=== PATIENT | female | born 1950 ===

== ENCOUNTER 2017-11-18 18:36 | Emergency (ER) | payer MEDICARE ==
[2017-11-18 19:52] VITALS: O2SAT 97
--- NOTE | 2017-11-18 19:55 | C.PDOC ---
History Of Present Illness 67 y/o female presents to the ED complaining of blurry vision, onset earlier today. Patient states symptoms have currently resolved. Also states she has not been taking her prescribed blood pressure medication, and is insisting on taking herbal medication. Otherwise she denies any palpitations, chest pain, SOB , numbness, extremity weakness, or other complaints. Time Seen by Provider: 11/18/17 19:54 Chief Complaint (Nursing): High Blood Pressure History Per: Patient History/Exam Limitations: no limitations Onset/Duration Of Symptoms: Hrs Current Symptoms Are (Timing): Gone Associated Symptoms: Blurred Vision Quality Of Symptoms: Asymptomatic Exacerbating Factor(s): Pos: Recently Missed Doses Of Medication Recent travel outside of the [place]: No Past Medical History Reviewed: Historical Data, Nursing Documentation, Vital Signs Vital Signs: Last Vital Signs Temp 98.1 F 11/18/17 20:34 Pulse 80 11/18/17 21:04 Resp 13 11/18/17 21:04 BP 181/75 H 11/18/17 21:04 Pulse Ox 97 11/18/17 21:17 - Medical History PMH: Diabetes, HTN Other Surgeries: Angioplasty Family History: States: No Known Family Hx - Social History Hx Tobacco Use: No Hx Alcohol Use: No Hx Substance Use: No - Immunization History Hx Tetanus Toxoid Vaccination: No Hx Influenza Vaccination: No Hx Pneumococcal Vaccination: No Review Of Systems Constitutional: Negative for: Fever, Chills Eyes: Positive for: Vision Change (blurred vision) Cardiovascular: Negative for: Chest Pain, Palpitations Respiratory: Negative for: Shortness of Breath Gastrointestinal: Negative for: Nausea, Vomiting Neurological: Negative for: Weakness, Numbness, Incoordination Physical Exam - Physical Exam Appears: Non-toxic, No Acute Distress Skin: Warm, Dry Head: Normacephalic Eye(s): bilateral: Normal Inspection Oral Mucosa: Moist Neck: Trachea Midline, Supple Chest: Symmetrical Cardiovascular: Rhythm Regular Respiratory: No Rales, No Rhonchi, No Wheezing Gastrointestinal/Abdominal: Soft, No Tenderness, No Distention, No Guarding Extremity: Bilateral: Atraumatic, Normal Color And Temperature, Normal ROM Pulses: Left Dorsalis Pedis: Normal, Right Dorsalis Pedis: Normal Neurological/Psych: Oriented x3, Normal Speech, Normal Cranial Nerves (2-12 intact), Normal Motor, Normal Sensation, Other (Non-focal neuro exam; No visual deficits) Gait: Steady ED Course And Treatment - Laboratory Results Result Diagrams: 11/18/17 20:01 11/18/17 20:40 O2 Sat by Pulse Oximetry: 97 (RA) Pulse Ox Interpretation: Normal - CT Scan/US CT Head Other Rad Studies (CT/US): Read By Radiologist CT/US Interpretation: FINDINGS: Brain: Out of proportion for age atrophy with chronic white matter ischemic changes, with no. evidence of an acute intracranial abnormality. There are multiple small hypodensities in the basal. ganglia consistent with remote lacunar infarctions. No hemorrhage. Ventricles: Unremarkable. No ventriculomegaly. Bones/joints: Chronic appearing nasal bone fractures. Soft tissues: Unremarkable. Vasculature: Atherosclerosis of the vertebral arteries and cavernous carotid arteries Probable. redundant loop all of the terminus of the left common carotid or anterior communicating artery artery. but a small aneurysm is not excluded. Sinuses: Unremarkable as visualized. No acute sinusitis. Mastoid air cells: Unremarkable as visualized. No mastoid effusion. IMPRESSION: No hemorrage, mass effect or subacute territorial infarction. CT can miss an acute nonhemorrhagic CVA. Acute strokes may be initially radiologically occult on CT. If the patient is having persistent stroke like. symptomatology, then MRI may be beneficial. Possible aneurysm terminus left common carotid artery or anterior communicating artery without. bleed. This could be further evaluated with nonemergent CTA or MRA Progress Note: Blood work and urine sent. Ordered EKG and noncontrast Head CT. Patient given 20 mg Labetalol IVP. Reevaluation Time: 21:33 Reassessment Condition: Improved Medical Decision Making Medical Decision Making: Upon provider reevaluation patient is feeling better, is medically stable, and requires no further treatment in the ED at this time. Patient will be discharged home with Rx for lisinopril/hctz . Counseling was provided and all questions were answered regarding diagnosis and need for follow up with the referred clinic. There is agreement to discharge plan. Return if symptoms persist or worsen. Disposition Counseled Patient/Family Regarding: Studies Performed, Diagnosis, Need For Followup, Rx Given - Disposition Disposition: HOME/ ROUTINE Disposition Time: 19:55 Condition: FAIR Additional Instructions: Please follow up with your doctor, and please take your blood pressure medication Prescriptions: Enalapril/Hydrochlorothiazide [Enalapril-Hctz 5-12.5 mg Tab] 1 each PO DAILY # 15 tablet Instructions: High Blood Pressure in Adults Forms: [facility] (Maltese) - Clinical Impression Clinical Impression: Hypertension - Scribe Statement The provider has reviewed the documentation as recorded by the Scribe (Krista Mcknight) Provider Attestation: All medical record entries made by the Scribe were at my direction and personally dictated by me. I have reviewed the chart and agree that the record accurately reflects my personal performance of the history, physical exam, medical decision making, and the department course for this patient. I have also personally directed, reviewed, and agree with the discharge instructions and disposition.
[2017-11-18] MEDS ORDERED: Labetalol 25mg/5ml Syringe IVP STA (19:56)
[2017-11-18 20:04] LABS: BASO % 0.5 % (0.0-2.0); EOS # 0.4 K/uL (0.0-0.7); EOS % 4.3 % (0.0-4.0); LYMPH # 2.3 K/uL (1.0-4.3); LYMPH % 27.7 % (20.0-40.0); MEAN CELL VOLUME 83.6 fL (81.0-99.0); MEAN CORPUSCULAR HGB CONC 34.7 g/dL (33.0-37.0); MEAN PLATELET VOLUME 7.7 fL (7.2-11.7); MONO # 0.5 K/uL (0.0-0.8); MONO % 6.2 % (0.0-10.0); NEUT # 5.2 K/uL (1.8-7.0); NEUT % 61.3 % (50.0-75.0); RBC 5.16 Mil/uL (3.80-5.20); RED CELL DISTRIBUTION WIDTH 13.2 % (11.5-14.5); WHITE BLOOD COUNT 8.4 K/uL (4.8-10.8)
[2017-11-18 20:10] LABS: SQUAMOUS EPITHIAL 1 /hpf (0-5); URINE AMORPHOUS SEDIMENT MODERATE /ul (<OCC); URINE BILIRUBIN NEGATIVE (NEGATIVE); URINE BLOOD NEGATIVE (NEGATIVE); URINE CLARITY Hazy (Clear); URINE COLOR Yellow (YELLOW); URINE GLUCOSE (UA) 2+ mg/dL (Normal); URINE LEUKOCYTE ESTERASE 2+ Leu/uL (Negative); URINE PROTEIN 2+ mg/dL (NEGATIVE); URINE UROBILINOGEN NORMAL mg/dL (0.2-1.0)
[2017-11-18 20:12] LABS: INR 0.9
[2017-11-18 20:14] LABS: PROTHROMBIN TIME 9.8 SECONDS (9.7-12.2)
[2017-11-18 20:41] VITALS: TEMP 98.1
[2017-11-18 20:54] LABS: ALB/GLOB RATIO 1.5 (1.0-2.1); ALBUMIN 4.4 g/dL (3.5-5.0); ALT/SGPT 32 U/L (9-52); AST/SGOT 27 U/L (14-36); BLOOD UREA NITROGEN 14 mg/dL (7-17); CALCIUM 10.3 mg/dl (8.6-10.4); GFR NON-AFRICAN AMERICAN > 60
[2017-11-18 21:04] VITALS: RESP 13
[2017-11-18 21:35] VITALS: BP 177/73; PULSE 82
--- NOTE | 2017-11-19 10:02 | CT ---
Date of service: 11/18/2017 PROCEDURE: CT HEAD WITHOUT CONTRAST. HISTORY: Dizziness COMPARISON: None available. TECHNIQUE: Axial computed tomography images were obtained through the head/brain without intravenous contrast. Radiation dose: Total exam DLP = 1003.95 mGy-cm. This CT exam was performed using one or more of the following dose reduction techniques: Automated exposure control, adjustment of the mA and/or kV according to patient size, and/or use of iterative reconstruction technique. FINDINGS: HEMORRHAGE: No intracranial hemorrhage. BRAIN: There are severe chronic microangiopathic changes. There is no mass, mass effect or abnormal extra-axial fluid collection. There is no territorial infarction. The midline sagittal structures are normal. VENTRICLES: There is mild age-related global parenchymal volume loss and proportionate enlargement of the ventricles and cortical sulci. CALVARIUM: Unremarkable. PARANASAL SINUSES: Predominantly clear. MASTOID AIR CELLS: Predominantly clear. OTHER FINDINGS: None. IMPRESSION: No acute intracranial abnormality. Severe chronic microangiopathic changes and mild age-related global parenchymal volume loss. A preliminary report was provided by [employer] [facility].
--- NOTE | 2017-11-19 17:12 | CARD ---
APPROVED REPORT Date of service: 11/18/2017 EKG Measurement Heart [id number] <Conclusion> Normal sinus rhythm Possible Left atrial enlargement Left axis deviation Poor R wave progression Abnormal ECG
== END 2017-11-18 21:51 | disposition home or self-care (01) ==
LOC: C.ER 18:36
DX: I10 Essential (primary) hypertension (principal); E11.9 Type 2 diabetes mellitus without complications

== ENCOUNTER 2018-03-15 00:19 | Emergency (ER) | payer MEDICARE ==
--- NOTE | 2018-03-15 02:36 | C.PDOC ---
History Of Present Illness 67 y/o female brought to ED by daughter for evaluation of right facial injury. They state that at approx 6pm, patient was going down the stairs in the dark when she missed a step and hit the right side of her face on the stairs. Patient denies LOC, nausea, vomiting, dizziness, visual changes, neck pain, chest pain, palpitations, or other physical complaints. Patient does not currently take any blood thinners. - HPI Time Seen by Provider: 03/15/18 01:15 Chief Complaint (Nursing): Trauma History Per: Patient History/Exam Limitations: no limitations Onset/Duration Of Symptoms: Hrs Severity: Moderate Past Medical History Reviewed: Historical Data, Nursing Documentation, Vital Signs Vital Signs: Last Vital Signs Temp 97.9 F 03/15/18 00:32 Pulse 86 03/15/18 00:32 Resp 20 03/15/18 00:32 BP 136/88 03/15/18 00:32 Pulse Ox 100 03/15/18 00:32 - Medical History PMH: Diabetes, HTN Family History: States: No Known Family Hx - Social History Hx Tobacco Use: No Hx Alcohol Use: No Hx Substance Use: No - Immunization History Hx Tetanus Toxoid Vaccination: No Hx Influenza Vaccination: No Hx Pneumococcal Vaccination: No Review Of Systems Cardiovascular: Negative for: Chest Pain, Palpitations Respiratory: Negative for: Shortness of Breath Gastrointestinal: Negative for: Nausea, Vomiting Musculoskeletal: Positive for: Other (Right facial injury) Skin: Negative for: Rash Neurological: Negative for: Weakness, Numbness, Incoordination, Change in Speech, Confusion, Seizures, Altered Mental Status, Headache, Dizziness Physical Exam - Physical Exam Appears: Well, Non-toxic, No Acute Distress Skin: Normal Color, Warm, Dry Head: Other (Right periorbital swelling and ecchymosis with small scattered abrasions) Eye(s): bilateral: EOMI (no pain with EOM movement), right: Normal Inspection, PERRL, left: Other (irregular but reactive) Oral Mucosa: Moist Neck: Normal, Normal ROM, No Midline Cervical Tenderness, No Paracervical Tenderness, No Step Off Deformity, Supple Cardiovascular: Rhythm Regular Respiratory: Normal Breath Sounds, No Rales, No Rhonchi, No Wheezing Gastrointestinal/Abdominal: Normal Exam, Bowel Sounds, Soft, No Tenderness Back: Normal Inspection, No CVA Tenderness, No Paraspinal Tenderness Extremity: Bilateral: Atraumatic, Normal Color And Temperature, Normal ROM Neurological/Psych: Oriented x3, Normal Speech, Normal Cognition, Normal Cranial Nerves, No Cerebellar Signs, Normal Motor, Normal Sensation Gait: Steady ED Course And Treatment O2 Sat by Pulse Oximetry: 100 (RA) Pulse Ox Interpretation: Normal - CT Scan/US CT Head Other Rad Studies (CT/US): Read By Radiologist, Radiology Report Reviewed CT/US Interpretation: IMPRESSION: 1. Age-appropriate cerebellar and cerebral atrophy. 2. Mild chronic microvascular disease. 3. No evidence of acute intracranial pathology. 4. Right preseptal soft tissue contusion. 5. Chronic sinusitis. CT Orbits Other Rad Studies (CT/US): Read By Radiologist, Radiology Report Reviewed CT/US Interpretation: Findings: Chronic mucosal inflammatory changes of the maxillary sinuses and ethmoid air cells. Right preseptal soft tissue hematoma/contusion. Surgical changes from prior rhinoplasty. Normal bilateral orbital contents. Normal bilateral medial and inferior orbital miller. Normal bilateral maxillary bones. Normal bilateral maxillary sinuses. Normal bilateral frontozygomatic arches. Normal bilateral zygomatic temporal arches. Normal nasal bones. Normal anterior nasal spine. There is no demonstrated fracture. Impression: No CT evidence of acute bone pathology. Right preseptal soft tissue edema/hematoma from contusion. Progress Note: CT head and facial bones ordered and reviewed. Patient did not want any medication for pain. Reevaluation Time: 04:20 Reassessment Condition: Improved (On reassessment, patient is resting comfortably, in no pain/distress. CT head/facial bones neg for acute fxs or bleeding. Patient discharged home and instructed to follow up with PMD in 1-2 days. She understands she should return to Ed if she has any concerning symptoms, such as severe headache, dizziness, vomiting, visual changes, etc.) Disposition Counseled Patient/Family Regarding: Studies Performed, Diagnosis, Need For Followup - Disposition Referrals: Yifan Greene MD [Staff Provider] - Disposition: HOME/ ROUTINE Disposition Time: 04:20 Condition: STABLE Additional Instructions: FOLLOW UP WITH YOUR DOCTOR IN 1-2 DAYS USE TYLENOL OR MOTRIN NEEDED FOR PAIN RETURN TO ER IF YOU HAVE ANY CONCERNING SYMPTOMS Instructions: Closed Head Injury (DC) Forms: [facility] (Burkinan) Print Language: ARMENIAN - Clinical Impression Clinical Impression: Periorbital contusion of right eye, Closed head injury - Scribe Statement The provider has reviewed the documentation as recorded by the Scribe Masha Andujar Provider Attestation: All medical record entries made by the Hiroibe were at my direction and personally dictated by me. I have reviewed the chart and agree that the record accurately reflects my personal performance of the history, physical exam, medical decision making, and the department course for this patient. I have also personally directed, reviewed, and agree with the discharge instructions and disposition.
[2018-03-15 04:22] VITALS: BP 126/61; PULSE 73; RESP 18; TEMP 98.6
[2018-03-15 05:21] VITALS: O2SAT 100
--- NOTE | 2018-03-15 08:31 | CT ---
Date of service: 03/15/2018 PROCEDURE: CT HEAD WITHOUT CONTRAST. HISTORY: Injury COMPARISON: 11/18/2017. TECHNIQUE: Axial computed tomography images were obtained through the head/brain without intravenous contrast. Radiation dose: Total exam DLP = 1049.93 mGy-cm. This CT exam was performed using one or more of the following dose reduction techniques: Automated exposure control, adjustment of the mA and/or kV according to patient size, and/or use of iterative reconstruction technique. FINDINGS: HEMORRHAGE: No intracranial hemorrhage. BRAIN: There are mild chronic microangiopathic changes. There is an old lacunar infarction in the right basal ganglia. There is no mass, mass effect or abnormal extra-axial fluid collection. There is no territorial infarction. The midline sagittal structures are normal. VENTRICLES: There is mild age-related global parenchymal volume loss and proportionate enlargement of the ventricles and cortical sulci. CALVARIUM: There is no calvarial fracture. There is mild right periorbital soft tissue swelling. PARANASAL SINUSES: There is mild mucosal thickening in the left maxillary sinus. The remaining included paranasal sinuses are clear. MASTOID AIR CELLS: Predominantly clear. OTHER FINDINGS: None. IMPRESSION: No acute intracranial abnormality. Mild chronic microangiopathic changes and mild age-related global parenchymal volume loss. Small lacunar infarction in the right basal ganglia. A preliminary report was provided by [employer].
--- NOTE | 2018-03-15 09:25 | CT ---
Date of service: 03/15/2018 PROCEDURE: CT MAXILLOFACIAL BONES WITHOUT CONTRAST HISTORY: right orbital injury r/o fx COMPARISON: None available. TECHNIQUE: Contiguous axial CT images of the maxillofacial bones were obtained. Coronal and sagittal reformats were generated. Radiation dose: Total exam DLP = 735.66 mGy-cm. This CT exam was performed using one or more of the following dose reduction techniques: Automated exposure control, adjustment of the mA and/or kV according to patient size, and/or use of iterative reconstruction technique. FINDINGS: NASAL BONES: No acute fracture. ORBITS: No acute orbital fracture. The globes are symmetric. There is no evidence for orbital emphysema, hemorrhage or lens dislocation. There is moderate right periorbital soft tissue swelling. PARANASAL SINUSES/ MASTOIDS: There is moderate polypoid mucosal thickening in the maxillary sinuses, worse on the left. There is scattered mucosal thickening in the ethmoid air cells. MAXILLA: No acute maxillofacial fracture. MANDIBLE/ TEMPOROMANDIBULAR JOINTS: Unremarkable. SKULL BASE: Unremarkable. TEMPORAL BONES: Middle ears and mastoid grossly unremarkable. OTHER FINDINGS: There is a prosthesis in the anterior nasal soft tissues.. IMPRESSION: No acute nasal bone, orbital or maxillofacial fracture. Moderate right periorbital soft tissue swelling. Chronic bilateral maxillary sinusitis, worse on the left. A preliminary report was provided by [email or web address].
== END 2018-03-15 04:22 | disposition home or self-care (01) ==
LOC: C.ER 00:19
DX: S00.11XA Contusion of right eyelid and periocular area, initial encounter (principal); W10.9XXA Fall (on) (from) unspecified stairs and steps, initial encounter